=== PATIENT | female | born 1955 | race Caucasian/White ===

== ENCOUNTER → 2023-07-06 11:17 | Outpatient (REF) | payer MEDICARE, OTHER, SELFPAY | LOC: WDC 11:17 | PROVIDERS: ATTENDING PHYSICIAN Internal Medicine | DX: Z12.31 Encounter for screening mammogram for malignant neoplasm of breast (principal) | CPT/HCPCS: 77063; 77067 ==

== ENCOUNTER → 2024-04-04 09:03 | Outpatient (REF) | payer MEDICARE, OTHER, SELFPAY | LOC: RCS 09:03 | PROVIDERS: ATTENDING PHYSICIAN Internal Medicine Cardiovascular Disease; FAMILY PHYSICIAN Internal Medicine | DX: I15.9 Secondary hypertension, unspecified (principal); I35.1 Nonrheumatic aortic (valve) insufficiency; E26.9 Hyperaldosteronism, unspecified | CPT/HCPCS: 93306 ==

== ENCOUNTER → 2024-08-15 16:08 | Outpatient (REF) | payer MEDICARE, OTHER, SELFPAY | LOC: WDC 16:08 | PROVIDERS: ATTENDING PHYSICIAN Obstetrics & Gynecology Gynecology; FAMILY PHYSICIAN Internal Medicine | DX: Z12.31 Encounter for screening mammogram for malignant neoplasm of breast (principal) | CPT/HCPCS: 77063; 77067 ==

== ENCOUNTER → 2024-09-04 08:38 | Outpatient (REF) | payer MEDICARE, OTHER, SELFPAY | LOC: WDC 08:38 | PROVIDERS: ATTENDING PHYSICIAN Obstetrics & Gynecology Gynecology; FAMILY PHYSICIAN Internal Medicine | DX: R92.8 Other abnormal and inconclusive findings on diagnostic imaging of breast (principal) | CPT/HCPCS: 76642 ==

== ENCOUNTER → 2024-09-11 07:49 | Outpatient (REF) | payer MEDICARE, OTHER, SELFPAY ==
--- NOTE | 2024-09-11 13:19 | OID.BR.INTR ---
[facility] Breast Navigator - Initial
- -
Date of Contact: 09/11/24
Met with patient. Patient given written information on navigator service available at [facility]. Will follow up as needed per protocol.
== END ==
LOC: WDC 07:49
PROVIDERS: ATTENDING PHYSICIAN Obstetrics & Gynecology Gynecology
DX: N63.20 Unspecified lump in the left breast, unspecified quadrant (principal)
CPT/HCPCS: 88305; 19083; A4648

== ENCOUNTER → 2024-10-09 14:27 | Outpatient (REF) | payer MEDICARE, OTHER, SELFPAY | LOC: WDC 14:27 | PROVIDERS: ATTENDING PHYSICIAN Surgery | DX: D36.9 Benign neoplasm, unspecified site (principal) | CPT/HCPCS: 19285; A4648 ==

== ENCOUNTER 2024-10-10 06:13 | Day surgery (SDC) | payer MEDICARE, OTHER, SELFPAY ==
[2024-10-05 14:12] VITALS: BMI 23.8
[2024-10-10 12:23] VITALS: BP 167/92; BMI 23.8
[2024-10-10] MEDS: TYLENOL 1000 MG PO (12:41)
[2024-10-10] MEDS: NORMOSOL-R/PLASMALYTE-A 1000 IV (12:42)
[2024-10-10] MEDS: LOVENOX 40 MG SC (12:42)
[2024-10-10 17:49] VITALS: BP 116/68
--- NOTE | 2024-10-10 17:51 | W.IMMPOSTOP ---
Surgical Immed Post Op Note
-
Primary Surgeon: Joseph
Assisting Surgeon: None
Pre-op Diagnosis: Left papillary lesion
Post-op Diagnosis: Same
Procedure Performed: Left localized lumpectomy
Anesthesia Type: TIVA
Specimen / Cultures: Left lumpectomy and margins
Estimated Blood Loss: 6cc
Complications: None
Operative Findings: Clip, reflector and mass retrieved
--- NOTE | 2024-10-10 17:52 | OR.RPT ---
Operative Report
Operative Report
Date of surgery: 10/10/2024
Surgeon: Joseph
Pre-op diagnosis: Left papillary breast lesion
Postop diagnosis: Same
Procedure: Left localized lumpectomy
The patient is a 69-year-old female who had an image detected change on mammography and ultrasound. This left to core biopsy showing a papillary lesion for which complete resection was recommended to rule out upstaging.
On the day prior to the procedure the patient presented to the [facility] where Charley reflector was placed at the site of the mass. On the day of surgery she presented to same-day surgical services. She verified site and procedure
was prepared for surgery. DVT and antibiotic prophylaxis were provided.
She was taken to the operating room and in the supine position intravenous sedation was delivered. Left breast was prepped and draped in the usual sterile fashion and all team members performed an appropriate timeout.
Left breast cyst anesthetized with 1% lidocaine plain. A lateral circumareolar incision was made sharply using the blade. Skin flaps were elevated using the cautery and using the savvy probe the location of the tumor was sounded out. Wide
lumpectomy was performed with the cautery. Time out of body was noted and the specimen was oriented for the pathologist. Specimen radiography confirmed the presence of the clip and mass within it. The Charley reflector had become dislodged and was
sent under separate cover.
Additional margins were harvested for permanent analysis from the posterior, medial, superior, lateral, inferior, and anterior dimensions and oriented. Hemostasis was verified. A portion of Surgicel was placed in the posterior aspect of the
resection bed. Marcaine 0.5% plain was instilled into all tissues. This wound was closed using simple interrupted 3-0 plain on deep intermediate and subcutaneous tissue and skin was closed with a running subcuticular 4-0 Monocryl. Surgical glue
and a sterile compressive dressing was applied. All sponge needle and instrument counts were correct and the patient was transferred to same-day surgery in stable condition
(23001)
[2024-10-10 18:01] VITALS: BP 120/67
== END 2024-10-10 18:34 | disposition home or self-care (01) ==
LOC: SDS 06:13
PROVIDERS: ATTENDING PHYSICIAN Surgery
DX: D24.2 Benign neoplasm of left breast (principal); N63.20 Unspecified lump in the left breast, unspecified quadrant
CPT/HCPCS: 19301; 88300; 88305; 88307; 76098; 88341; 88342

== ENCOUNTER → 2024-11-27 08:54 | Outpatient (REF) | payer MEDICARE, OTHER, SELFPAY | LOC: WDC 08:54 | PROVIDERS: ATTENDING PHYSICIAN Surgery; FAMILY PHYSICIAN Internal Medicine | DX: N64.52 Nipple discharge (principal) | CPT/HCPCS: 76642 ==